=== PATIENT | female | born 1965 | race Asian ===

== ENCOUNTER 2018-09-13 19:43 | Emergency (ER) | payer OTHER ==
[~2018-09-13] VITALS: Ht 154.9 cm; Wt 67.1 kg
[2018-09-13 20:35] VITALS: Ht 154.9 cm; Wt 67.1 kg
[2018-09-13 23:41] VITALS: BP 141/94
== END 2018-09-13 23:41 | disposition home or self-care (01) ==
LOC: ED 19:43
DX: S62.635B Displaced fracture of distal phalanx of left ring finger, initial encounter for open fracture (principal); W23.1XXA Caught, crushed, jammed, or pinched between stationary objects, initial encounter; Y93.89 Activity, other specified; Y92.89 Other specified places as the place of occurrence of the external cause; Y99.8 Other external cause status
CPT/HCPCS: 90715; A4570; J0690